=== PATIENT | male | born 1985 | race Caucasian/White ===

== ENCOUNTER 2019-12-19 15:35 | Emergency (ER) | payer BC, OTHER ==
[2019-12-19 15:56] VITALS: BP 140/94; PULSE 69
--- NOTE | 2019-12-19 17:59 | EDM.PDOC ---
ED HPI GENERAL MEDICAL PROBLEM - General Chief Complaint: Upper Extremity Injury/Pain Stated Complaint: R THUMB INFECTION Time Seen by Provider: 12/19/19 17:31 Source of Information: Reports: Patient, RN Notes Reviewed History Limitations: Reports: No Limitations - History of Present Illness INITIAL COMMENTS - FREE TEXT/NARRATIVE: Patient is a 34-year-old male who presents to the ED for the evaluation of ongoing redness in his right hand. He had a metal sliver in his right thumb taken out Thursday, but he now notes that is been getting increasingly more red swollen and painful since then. He was seen at the walk-in clinic in [facility], and was started on clindamycin 300 mg, he states that he has had 5 doses since the beginning of the medication. That would be a day and a half worth of medication. He denies any fevers, chills, nausea, vomiting. Patient notes that the area was marked out with a skin marker, and he is noting some red streaks going up his arm as well. Patient notes that it is very painful to move his thumb due to the swelling. He states that they re-x-rayed the finger after the sliver was taken out, and he states there was no longer any retained foreign body. He was worried as the pain was spreading up to his elbow, this prompted him to present to the ER for management. Right Hand Pain Score (Numeric/FACES): 8 - Related Data Allergies Allergy/AdvReac Type Severity Reaction Status Date / Time No Known Allergies Allergy Verified 12/19/19 15:56 Home Meds: Home Meds Amoxicillin/Clavulanate K [Augmentin 875-125 MG] 1 tab PO BID #14 tablet [Rx] Past Medical History HEENT History: Reports: Impaired Vision Other HEENT History: HX OF MIGRAINES Musculoskeletal History: Reports: Other (See Below) Other Musculoskeletal History: Trigger Finger Release Neurological History: Reports: Migraines Dermatologic History: Reports: Cellulitis - Past Surgical History HEENT Surgical History: Reports: LASIK Musculoskeletal Surgical History: Reports: Arthroscopic Procedure, Other (See Below) Social & Family History - Tobacco Use Smoking Status *Q: Never Smoker - Caffeine Use Caffeine Use: Reports: Coffee - Recreational Drug Use Recreational Drug Use: No Review of Systems - Review of Systems Review Of Systems: See Below Constitutional: Denies: Chills, Fever Respiratory: Denies: Shortness of Breath Cardiovascular: Denies: Chest Pain Skin: Reports: Erythema (on PIP and DIP of R thumb with red streaks extending up posterior surface of R forearm.), Wound (small puncture wound noted to posterior surface of DIP, this is where the metal sliver went in.) Neurological: Denies: Numbness, Tingling ED EXAM, GENERAL - Physical Exam Exam: See Below Exam Limited By: No Limitations General Appearance: Alert, WD/WN, No Apparent Distress Eye Exam: Bilateral Eye: EOMI, Normal Inspection, PERRL Throat/Mouth: Normal Inspection, Normal Lips, Normal Teeth, Normal Gums, Normal Oropharynx, Normal Voice, No Airway Compromise Head: Atraumatic, Normocephalic Neck: Normal Inspection Respiratory/Chest: No Respiratory Distress, Lungs Clear, Normal Breath Sounds, No Accessory Muscle Use, Chest Non-Tender Cardiovascular: Normal Peripheral Pulses, Regular Rate, Rhythm, No Edema, No Murmur Peripheral Pulses: 3+: Radial (L), Radial (R) Extremities: Normal Inspection, Normal Capillary Refill, Limited Range of Motion (R thumb), Increased Warmth (of R thumb), Redness (R thumb) Neurological: Alert, Oriented, Normal Cognition, No Motor/Sensory Deficits Psychiatric: Normal Affect, Normal Mood Skin Exam: Warm, Dry, Intact, No Rash, Erythema (on PIP and DIP of R thumb with red streaks extending up posterior surface of R forearm.), Wound/Incision ( small puncture wound noted to posterior surface of DIP. this appears to be well healing, he states that this is where the metal sliver went in.) Course - Vital Signs Last Recorded V/S: Last Vital Signs Temp 99 F 12/19/19 15:53 Pulse 69 12/19/19 15:53 Resp 16 12/19/19 15:53 BP 140/94 H 12/19/19 15:53 Pulse Ox 100 12/19/19 15:53 - Orders/Labs/Meds Orders: Active Orders 24 hr Category Date Time Status Lidocaine 1% [Xylocaine-MPF 1%] Med 12/19/19 18:25 Once 2 ml INJECT ONETIME ONE cefTRIAXone [Rocephin] 2 gm Med 12/19/19 18:25 Ordered Sodium Chloride 0.9% [Normal Saline] 100 ml IV ONETIME - Re-Assessments/Exams Free Text/Narrative Re-Assessment/Exam: 12/19/19 18:03 Patient presents to the ED for evaluation of ongoing redness into his right thumb. I did make the patient aware that antibiotics can take up to 48 hours to work, however due to the increased redness and swelling of his arm, I believe a dose of IV antibiotics is in order for further management of this. However d/t this being over a joint and him having increased limited ROM, I have consulted Ortho in [place]. Dr. Plunkett is the orthopedic surgeon marine resource economist and he recommends giving the patient a shot of Rocephin, and sending him home with a prescription of Augmentin, as he states that the clindamycin must not be covering what is causing the infection, I will relay this information to the patient, and provide such treatment. He states that the patient could follow- up with Dr. Russ, our orthopedic surgeon, tomorrow however Dr. Russ is out of the office for 2 weeks, so he should follow-up with [facility] in [place], tomorrow. I will give the patient the number to call to correlate follow-up. Departure - Departure Time of Disposition: 18:25 Disposition: Home, Self-Care 01 Condition: Fair Clinical Impression: Cellulitis of finger of right hand - Discharge Information *PRESCRIPTION DRUG MONITORING PROGRAM REVIEWED*: No *COPY OF PRESCRIPTION DRUG MONITORING REPORT IN PATIENT [place]: No Prescriptions: Amoxicillin/Clavulanate K [Augmentin 875-125 MG] 1 tab PO BID #14 tablet Instructions: Cellulitis, Adult, [id number] Referrals: PCP,None [Primary Care Provider] - Forms: ED Department Discharge Additional Instructions: You were evaluated in the ER today regarding your redness/swelling/painful right thumb. You were given an injection of antibiotics at today's visit, and you will need a change in your oral antibiotics. Please stop taking the clindamycin as previously prescribed, and start taking the Augmentin, 1 tab twice daily for the next 7 days. Recommend that you obtain a probiotic from the pharmacist when you obtain your antibiotics, as this antibiotic does have the possibility of causing diarrhea. You would benefit from a follow-up with an orthopedic hand specialist, please call [phone], to follow-up with [facility], please call to routine appointment tomorrow or the next day for reevaluation to make sure that your symptoms are getting better as expected. You may try to ice the area to help relieve some of the swelling as tolerated. You may take 600 mg ibuprofen every 6 hours as needed for further pain management. Please do not exceed 3200 mg in a 24-hour time span. Please return to the ER at any time if your symptoms change or worsen. Sepsis Event Note - Evaluation Sepsis Screening Result: No Definite Risk - Focused Exam Vital Signs: Vital Signs Temp Pulse Resp BP Pulse Ox 12/19/19 15:53 99 F 69 16 140/94 H 100 Date Exam was Performed: 12/19/19 Time Exam was Performed: 18:25 - My Orders Last 24 Hours: My Active Orders 12/19/19 18:25 Lidocaine 1% [Xylocaine-MPF 1%] 2 ml INJECT ONETIME ONE cefTRIAXone [Rocephin] 2 gm Sodium Chloride 0.9% [Normal Saline] 100 ml IV ONETIME - Assessment/Plan Last 24 Hours: My Active Orders 12/19/19 18:25 Lidocaine 1% [Xylocaine-MPF 1%] 2 ml INJECT ONETIME ONE cefTRIAXone [Rocephin] 2 gm Sodium Chloride 0.9% [Normal Saline] 100 ml IV ONETIME
[2019-12-19] MEDS ORDERED: cefTRIAXone 2 GM in Sodium Chloride 0.9% 100 ML IV ONE (18:25)
[2019-12-19] MEDS ORDERED: Lidocaine 1% PF 2 ML SDV INJECT ONE (18:25)
[2019-12-19] MEDS ORDERED: cefTRIAXone 2 GM Vial ONE (18:56)
[2019-12-19] MEDS ORDERED: cefTRIAXone 2 GM Vial IM ONE (19:04)
[2019-12-19] MEDS ORDERED: Lidocaine 1% 2 ML ONE (19:10)
== END 2019-12-19 19:21 | disposition home or self-care (01) ==
LOC: JD.ED 15:35
DX: L03.011 Cellulitis of right finger (principal)
CPT/HCPCS: 96372; 99283; J0696; J2001